=== PATIENT | female | born 1995 | race Caucasian/White ===

== ENCOUNTER 2016-09-13 15:07 | Emergency (ER) | payer MEDICARE, OTHER ==
--- OUTSIDE RECORDS SUMMARY | 2016-09-13 16:37 | XMS REPORT | Continuity of Care Document ---
:1995 Author Organization [facility] ([facility]) Address [address] [place] [address] Phone [phone] Care Team Providers Name Role Phone Unavailable Primary Care Provider Unavailable Source Comments This disclosure is being made pursuant to the Care Everywhere program, applicable federal and state laws, and may not contain all informaitonavailable regarding this patient.[facility] ([facility]) Active Allergies and Adverse Reactions Not on File Current Medications Not on file Active Problems Not on file Social History Tobacco Use Types Packs/Day Years Used Date Never Assessed Plan of Care Health Maintenance Due Date Last Done Comments Hepatitis B Vaccine (1 of 3 - Primary Series) 1995 HPV Vaccine (1 of 3 - Female/Unknown 3 Dose Series) 12/10/2006 Tdap Vaccine 12/10/2006 Meningococcal Vaccine (1 of 1) 2011 Lipid Disorder Screening 12/10/2013 MMR Vaccine 12/10/2013 Td Vaccine 12/10/2013 Varicella Vaccine (1 of 2 - Adult - No Evidence of 12/10/2013 Immunity) Influenza Vaccine: Seasonal (#1) 12/19/2015 Results from Last 3 Months Not on file
--- NOTE | 2016-09-13 17:03 | ERNOTE ---
Lower Extremity HPI - Narrative Date of Service: 09/13/16 - General Lower Extremities Pain: foot: left Time Seen by Provider: 09/13/16 16:29 Source: patient, family Exam Limitations: no limitations - Immun/Allergies/Home Medications Immunizations: IMMUNIZATION HX Immunizations Up to Date Yes Allergies/Adverse Reactions: Allergies Allergy/AdvReac Type Severity Reaction Status Date / Time penicillin G Allergy Verified 09/13/16 15:28 Home Medications: HOME MEDICATIONS Flonase 50 mcg INH DAILY 08/21/12 [Last Taken Unknown] Singulair 5 mg PO DAILY 08/21/12 [Last Taken Unknown] Synthroid 125 mcg PO DAILY 08/21/12 [Last Taken Unknown] Clindamycin HCl [Cleocin HCl] 300 mg PO BID #14 capsule 09/13/16 [Last Taken Unknown] - History of Present Illness Narrative: 20-year-old female presents to the emergency room for left foot pain patient has a 1 cm blistered area on the bottom part of her foot that is reddened around the site. Patient states it started 2 days ago Date (Duration): 09/13/16 Occurred: other - 2 days ago Method of Injury: Reports: no apparent injury Modifying Factors - (Improves): Reports: immobilization Modifying Factors - (Worsens): Reports: movement Other Injuries: Reports: none Review of Systems - Review of Systems Constitutional: Present: no symptoms reported EYE: Present: no symptoms reported ENT: Present: no symptoms reported Respiratory: Present: no symptoms reported Cardiology: Present: no symptoms reported Gastrointestinal/Abdominal: Present: no symptoms reported Genitourinary: Present: no symptoms reported Musculoskeletal: Present: no symptoms reported Skin: Present: See HPI, lesions, change in color - red, warm Neurological: Present: no symptoms reported Endocrine: Present: no symptoms reported Hematologic/Lymphatic: Present: no symptoms reported Psych: Present: no symptoms reported - Patient's Past Medical History Patient History - Medical: Other Additional info: down syndrome Patient History - Cancer: No Hx of Cancer Patient History - Surgical Procedures: T & A, Other Patient History - Other: None LMP (females 10-50): Pt states she takes Depo shot, pt reports she does not have periods - Social History Living Situations: home Abuse History: No History of abuse Psych History: No pertinent hx Smoking Status: Never smoker Alcohol Use: none Drug Use: none - Immunizations Immunizations Up to Date: Yes Physical Exam - Physical Exam Narrative: This pleasant 20 year old female presents with a warm indurates area to the lateral aspect of the bottom of her foot with a 1.5cm fluid filled blister. area is tender to touch. patient states she noticed it 2 days ago. General Appearance: Present: wd/wn, alert, no apparent distress Ears, Nose, Throat: Present: normal ENT inspection Neck: Present: normal inspection Respiratory: Present: no respiratory distress, normal breath sounds, no accessory muscle use Cardiovascular/Chest: Present: regular rate, rhythm Gastrointestinal/Abdominal: Present: normal bowel sounds, soft Back Exam: Present: normal inspection, normal range of motion Extremity Exam: Present: normal except - - left foot Neurological Exam: Present: alert, oriented, normal mood/affect Skin Exam: Present: normal color - except bottom of her left foot. , warm/dry Lymphatic Exam: Present: no adenopathy ED Progress - Vital Signs Patient's Vital Signs:: I have reviewed the patient's vital signs. Vital Signs: Vital Signs 09/13/16 15:15 Temperature 36.5 C Pulse Rate 101 H Respiratory 18 Rate Blood Pressure 111/73 O2 Sat by Pulse 98 Oximetry - X-Ray X-Ray #1 X-Ray: foot Interpretation: Reviewed by me X-ray Comments: comparison: None Technique: Foot 3 Views LT * Findings: Normal bony mineralization and alignment. No fracture or dislocation. No productive or erosive changes are seen. No lytic or blastic changes. No radiopaque foreign density. There is soft tissue swelling.. IMPRESSION: NO ACUTE OSSEOUS ABNORMALITY Electronically signed by Phill Bucio M.D - Progress/Reassessment Chief Complaint: Foot Injury/Pain Plan - Plan Plan: spoke with Dr Susanna Cobb about patient. She asked for patient to be started on Clindamycin and for mother to call the Office in the AM for a appointment. Departure Clinical Impression: Blister (nonthermal), left foot, initial encounter Qualifiers: Encounter type: initial encounter Qualified Code(s): S90.822A - Blister ( nonthermal), left foot, initial encounter - Departure Disposition: Home Follow Up Needed Condition: Stable Instructions: Blisters, Form - Excuse from Work, School, or Physical Activity Additional Instructions: Please follow up with Dr Cobb in the AM. Continue previous home medications as prescribed take antibiotic as prescribed return to the emergency room symptoms persist or unable to be controlled Referrals: Antwon Sales MD [Primary Care Provider] - Prescriptions: Clindamycin HCl [Cleocin HCl] 300 mg PO BID #14 capsule
[2016-09-13 17:04] VITALS: BP 108/45
== END 2016-09-13 17:28 | disposition home or self-care (01) ==
LOC: ER 15:07
DX: S90.822A Blister (nonthermal), left foot, initial encounter (principal)